=== PATIENT | female | born 1980 | race African-American/Black ===

== ENCOUNTER 2016-12-13 17:02 | Emergency (ER) | payer OTHER ==
[~2016-12-13] VITALS: Ht 167.6 cm; Wt 81.6 kg
[2016-12-13 17:13] VITALS: BP 106/75
[2016-12-13] MEDS ORDERED: PREDNISONE10 M2 PO (19:33)
--- NOTE | 2016-12-13 19:33 | ED SKIN/ALLERGY COMPLAINT ---
History of Present Illness General Chief Complaint: Allergy Symptoms Stated Complaint: ALLERGIC REACTION, SWELLING OF LIPS Source: patient, old records Exam Limitations: no limitations Vital Signs & Intake/Output Vital Signs & Intake/Output Vital Signs Date Time Temp Pulse Resp B/P B/P Pulse O2 O2 Flow FiO2 Mean Ox Delivery Rate 12/13 1937 98 Room Air 12/13 1713 97.1 80 16 106/75 97 Room Air ED Intake and Output 12/14 0000 12/13 1200 Intake Total Output Total Balance Patient 180 lb Weight Weight Reported by Patient Measurement Method Allergies Coded Allergies: NO KNOWN ALLERGIES (05/19/11) Reconcile Medications Prednisone 10 MG TABLET 0 PO DAILY allergic reaction 5 tabs po day 1 4 tabs po day 2 3 tabs po day 3 2 tabs po day 4 1 tab po day 5-6 Triage Note: PT STATES SHE FELT LIKE SOMETHING GOT CAUGHT IN HER THROAT THEN HER LIPS STARTED TO SWELL. PT REPORTS THIS ALL STARTED ON TUESDAY. PT STATES SHE TOOK BENADRYL THIS AM AND STATES HER LIPS DID GO DOWN. PT DENIES SOB 02 SAT 95% RA IN TRIAGE Triage Nurses Notes Reviewed? yes Onset: Abrupt Duration: day(s): (3), better, constant Timing: recent history Severity: mild, moderate Severity Numbers: 5 Location: face Possible Factors: no cause identified Modifying Factors: Improves With: antihistamine. Associated Symptoms: denies : No Patient currently breastfeeds: No HPI: 36-year-old female presents to the ER for evaluation complaining of an allergic reaction swelling to her lips for the past 3 days. The patient denies any exposure to any known allergens no history of allergic reactions or anaphylaxis in the past. She took Benadryl this morning with noted improvement in swelling. She denies any difficulty swallowing or difficulty breathing. No chest pain shortness of breath abdominal pain nausea or vomiting or diarrhea. The patient is status post gastric bypass 3 weeks ago. She does not take any medications on a regular basis. ` (BRIGITTE GOINS) Past History Travel History Traveled to [place] past 21 day No Medical History Any Pertinent Medical History? see below for history Tetanus Vaccine: Surgical History Surgical History: gastric bypass Psychosocial History What is your primary language Icelandic Tobacco Use: Never used ETOH Use: occasional use Illicit Drug Use: denies illicit drug use Family History Hx Contributory? No (BRIGITTE GOINS) Review of Systems Review of Systems Constitutional: Reports: see HPI. All Other Systems: Reviewed and Negative Comments Review of systems: See HPI, All other systems negative. Constitutional, no chills no fever, no malaise HEENT: No visual changes no sore throat no congestion Cardiovascular: No chest pain , no palpitation Skin: no rashes, no change in skin Respiratory: No dyspnea no cough no sputum GI: No nausea no vomiting, no diarrhea, : No dysuria No hematuria Muscle skeletal: No joint pain, no back pain, no neck pain, Neurologic: No numbness, no headache Psych: No stress Heme/endocrine: No bruising Immunology: No lymphadenopathy (BRIGITTE GOINS) Physical Exam Physical Exam General Appearance: well developed/nourished, no apparent distress, alert Comments: Well-developed well-nourished patient in no apparent distress. Head/Face: Mild upper and lower lip swelling Atraumatic, no maxillary/frontal sinus tenderness, no facial swelling Eyes: PERRL, EOMI, no conjunctival injection. No nystagmus Ear:External auditory canal and Tympanic membranes clear, no erythema, no FB. Nose: atraumatic.Normal inspection: No bleeding, no septal hematoma Throat: Moist mucous membranes.Pharynx normal. No pharyngeal erythema/exudate seen. No stridor/drooling or assymetry. No swelling or edema. no tongue swelling no uvular displacement no trismus Neck: Supple, no lymphadenopathy, FROM Back: FROM Cardiovascular: Regular rate and rhythms no murmurs rubs Respiratory: Chest nontender.There were no bony deformities, no asymmetry. No respiratory distress. Patient speaking in full complete sentences. Breath sounds clear to auscultation bilaterally: NO W/R/R Extremities: full range of motion Neuro: awake, alert, and oriented to person, place and time. There were no obvious focal neurologic abnormalities. Skin: Warm & dry;No appreciable rash on exposed skin Psych: Mood affect normal, normal memory normal judgment. (BRIGITTE GOINS) Progress Differential Diagnosis: abscess/cellulitis, allergic reaction, anaphylaxis, angioedema Plan of Care: Current Medications Sig/Adonis Start time Last Medication Dose Stop Time Status Admin Prednisone 60 MG ONCE ONE 12/13 1929 UNVr 12/13 1930 Patient clinically appears well noted improvement in swelling since this morning patient took pictures earlier of her face, I do not believe she requires IV which she is in agreement with she has appointment with supervisor record press scheduled on Tuesday. Prescription for prednisone provided she feels comfortable plan cleared for discharge (BRIGITTE GOINS) Departure Departure Time of Disposition: 1929 Disposition: HOME OR SELF CARE Condition: Stable Clinical Impression Primary Impression: Allergic reaction Referrals: EM KILLIAN,ESTEE Pitt (PCP/Family) Additional Instructions: prednisone taper as directed- you were given todays dose here. begin this tomorrow. benadryl every 8 hours as needed. follow up with your supervisor record press on tuesday. return to the er with any concerns Departure Forms: Customer Survey General Discharge Information Prescriptions: Current Visit Scripts Prednisone 0 PO DAILY #16 TAB 5 tabs po day 1 4 tabs po day 2 3 tabs po day 3 2 tabs po day 4 1 tab po day 5-6 (BRIGITTE GOINS) PA/HANGER Co-Sign Statement Statement: ED Attending supervision documentation- [] I saw and evaluated the patient. I have also reviewed all the pertinent lab results and diagnostic results. I agree with the findings and the plan of care as documented in the PA's/HANGER's documentation. [x] I have reviewed the ED Record and agree with the PA's/HANGER's documentation. [] Additions or exceptions (if any) to the PAs/HANGER's note and plan are summarized below: [] (KIAN KILLIAN,BROOKS Madden)
== END 2016-12-13 19:39 ==
LOC: ERH 17:02
DX: T78.40XA Allergy, unspecified, initial encounter (principal)